=== PATIENT | male | born 1985 | race Caucasian/White ===

== ENCOUNTER → 2017-11-30 | Outpatient (CLI) | payer OTHER | LOC: LAB 09:35 | PROVIDERS: ATTEND Family Medicine | DX: Z11.1 Encounter for screening for respiratory tuberculosis (principal) | CPT/HCPCS: 36415; 86480 ==

== ENCOUNTER → 2018-01-22 | Outpatient (CLI) | payer OTHER | LOC: LAB 08:54 | PROVIDERS: ATTEND Obstetrics & Gynecology Reproductive Endocrinology | DX: Z11.3 Encounter for screening for infections with a predominantly sexual mode of transmission (principal) | CPT/HCPCS: 36415; 86592; 86644; 86645; 86703; 86704; 86706; 86790; 87340; 87491; 87591 ==

== ENCOUNTER → 2018-01-30 | Outpatient (CLI) | payer OTHER | LOC: LAB 11:34 | PROVIDERS: ATTEND Obstetrics & Gynecology Reproductive Endocrinology | DX: Z11.3 Encounter for screening for infections with a predominantly sexual mode of transmission (principal) | CPT/HCPCS: 86803 ==

== ENCOUNTER → 2019-01-17 | Outpatient (CLI) | payer OTHER | LOC: LAB 07:59 | PROVIDERS: ATTEND Orthopaedic Surgery | DX: Z11.3 Encounter for screening for infections with a predominantly sexual mode of transmission (principal) | CPT/HCPCS: 36415; 86592; 86644; 86645; 86703; 86704; 86803; 87340; 87491; 87591 ==